=== PATIENT | female | born 1980 | race Two or more races ===

== ENCOUNTER 2021-12-09 15:10 | Inpatient (IN) | payer MEDICAID ==
[~2021-12-09] VITALS: Ht 167.6 cm; Wt 56.7 kg
[2021-12-09] MEDS ORDERED: ONDANSETRON HCL 4MG/2ML INJ IV STA (16:53)
[2021-12-09] MEDS ORDERED: KETOROLAC 30MG/ML VIAL IV STA (16:53)
[2021-12-09] MEDS ORDERED: MAGNESIUM/ALUMINUM HYDROXIDE/SIMETHICONE 30ML UDC PO STA (16:53)
[2021-12-09] MEDS ORDERED: SODIUM CHLORIDE 0.9% 1,000 ML IV ONE (17:00)
[2021-12-09 17:43] LABS: BASOPHILS % 0.2 % (0.0-2.0); EOSINOPHILS % 3.7 % (0.0-5.0); HEMATOCRIT. 41.2 % (36.0-48.0); HEMOGLOBIN. 14.3 g/dL (12.0-16.0); LYMPHOCYTES % 20.7 % (20.0-50.0); MEAN CORPUSCULAR HEMOGLOBIN 38.5 pg (28.0-32.0); MEAN CORPUSCULAR VOLUME 110.7 fL (81.0-99.0); MEAN PLATELET VOLUME 9.4 fl (7.4-10.4); MONOCYTES % 6.8 % (2.0-8.0); NEUTROPHILS % 68.6 % (40.0-76.0); PLATELET 247 x1000/uL (130-400); RED BLOOD CELL COUNT 3.72 mill/uL (4.2-5.4); RED CELL DISTRIBUTION WIDTH 17.9 % (11.6-14.6)
[2021-12-09 17:54] LABS: INR 1.1; PROTHROMBIN TIME 11.9 sec (9.6-11.0)
[2021-12-09 17:57] LABS: CLARITY URINE TURBID (CLEAR); COLOR URINE ORANGE (YELLOW); KETONES URINE NEGATIVE (NEGATIVE); LEUKOCYTE ESTERASE URINE 2+ (NEGATIVE); NITRITE URINE POSITIVE (NEGATIVE); OCCULT BLOOD URINE NEGATIVE (NEGATIVE); PH URINE 5.5 (4.5-8.0); PROTEIN URINE 1+ (NEGATIVE); SPECIFIC GRAVITY URINE 1.036 (1.005-1.030)
[2021-12-09 18:01] LABS: CHLORIDE 97 mEq/L (98-107)
[2021-12-09 18:26] LABS: PLATELET ESTIMATE NORMAL
[2021-12-09] MEDS ORDERED: IOHEXOL-300 100 ML BOTTLE ONE (20:03)
[2021-12-09] MEDS ORDERED: CEFTRIAXONE 1 G PREMIX 50 ML IV ONE (20:15)
[2021-12-09] MEDS ORDERED: POTASSIUM CHLORIDE 20MEQ TABLET SR PO ONE (20:45)
[2021-12-09] MEDS ORDERED: DOCUSATE SODIUM 100MG CAPSULE PO PRN (22:00)
[2021-12-09] MEDS ORDERED: GUAIFENESIN 200MG/10ML SUGAR FREE UDC PO PRN (22:00)
[2021-12-09] MEDS ORDERED: MAGNESIUM/ALUMINUM HYDROXIDE/SIMETHICONE 30ML UDC PO PRN (22:00)
[2021-12-09] MEDS ORDERED: ONDANSETRON HCL 4MG/2ML INJ IV PRN (22:00)
[2021-12-09] MEDS ORDERED: IPRATROPIUM/ALBUTEROL 0.5-3(2.5)MG/3ML NEB HHN PRN (22:00)
[2021-12-09] MEDS ORDERED: CEFTRIAXONE 1 G PREMIX 50 ML IV SCH (22:00)
[2021-12-09] MEDS ORDERED: CLONIDINE 0.1MG TABLET PO PRN (22:00)
[2021-12-09] MEDS: THIAMINE HCL 100MG TABLET PO SCH (22:00)
[2021-12-09] MEDS: MULTIVITAMINS,THER W-MINERALS TABLET PO SCH (22:00)
[2021-12-09] MEDS ORDERED: ACETAMINOPHEN 325MG TABLET PO PRN ×2 (22:00)
[2021-12-10] MEDS: HYDROCODONE/ACETAMINOPHEN 5/325MG TABLET PO PRN ×4 (03:40→21:58)
[2021-12-10 05:26] LABS: BASOPHILS % 0.4 % (0.0-2.0); EOSINOPHILS % 4.5 % (0.0-5.0); HEMATOCRIT. 36.5 % (36.0-48.0); HEMOGLOBIN. 12.7 g/dL (12.0-16.0); LYMPHOCYTES % 27.8 % (20.0-50.0); MEAN CORPUSCULAR HEMOGLOBIN 38.4 pg (28.0-32.0); MEAN CORPUSCULAR VOLUME 110.6 fL (81.0-99.0); MEAN PLATELET VOLUME 9.6 fl (7.4-10.4); MONOCYTES % 7.2 % (2.0-8.0); NEUTROPHILS % 60.1 % (40.0-76.0); PLATELET 205 x1000/uL (130-400); RED BLOOD CELL COUNT 3.31 mill/uL (4.2-5.4); RED CELL DISTRIBUTION WIDTH 17.4 % (11.6-14.6)
[2021-12-10 05:35] LABS: PHOSPHORUS 2.9 mg/dL (2.5-4.9)
[2021-12-10 05:39] LABS: CREATINE KINASE 38 IU/L (26-192)
[2021-12-10 05:49] LABS: HEPATITIS B SURFACE AB < 3.1 mIU/mL
[2021-12-10 05:59] LABS: HEPATITIS B SURFACE ANTIGEN NEGATIVE
[2021-12-10 06:42] LABS: CHLORIDE 102 mEq/L (98-107); LDL CHOLESTEROL 117 mg/dL (5-100); T4 FREE 1.08 ng/dL (0.76-1.46)
[2021-12-10 07:09] LABS: HDL CHOLESTEROL 14 mg/dL (40-59)
[2021-12-10] MEDS: PANTOPRAZOLE 40MG DR TABLET PO SCH (07:48)
[2021-12-10] MEDS ORDERED: FAMOTIDINE 20MG/2ML VIAL IV SCH (09:00)
[2021-12-10] MEDS ORDERED: KCL 20MEQ/100ML PREMIX 100 ML IV NR (09:30)
[2021-12-10 11:16] VITALS: BP 138/100
[2021-12-10] MEDS: MULTIVITAMINS,THER W-MINERALS TABLET PO SCH (11:57)
[2021-12-10] MEDS: THIAMINE HCL 100MG TABLET PO SCH (11:57)
[2021-12-10] MEDS: FOLIC ACID 1MG TABLET PO SCH (11:57)
[2021-12-10] MEDS: ENOXAPARIN 40MG/0.4ML SYR SUBCUT SCH (11:58)
[2021-12-10 12:00] VITALS: BP 134/78
[2021-12-10] MEDS: METOCLOPRAMIDE HCL 10MG/2ML VIAL IV SCH ×2 (15:35→18:13)
[2021-12-10 16:01] VITALS: BP 139/94
[2021-12-10 20:00] VITALS: BP 128/94
[2021-12-10] MEDS ORDERED: CEFTRIAXONE 1,000 MG in DEXTROSE 5% WATER 50 ML IV SCH (21:00)
[2021-12-11] VITALS: BP 133/94
[2021-12-11] MEDS: METOCLOPRAMIDE HCL 10MG/2ML VIAL IV SCH ×2 (00:57→07:35)
[2021-12-11 04:00] VITALS: BP 131/92
[2021-12-11] MEDS: PANTOPRAZOLE 40MG DR TABLET PO SCH (07:35)
[2021-12-11 07:42] LABS: BASOPHILS % 0.7 % (0.0-2.0); EOSINOPHILS % 7.3 % (0.0-5.0); HEMOGLOBIN. 11.4 g/dL (12.0-16.0); LYMPHOCYTES % 29.7 % (20.0-50.0); MEAN CORPUSCULAR HEMOGLOBIN 38.7 pg (28.0-32.0); MEAN CORPUSCULAR VOLUME 111.5 fL (81.0-99.0); MEAN PLATELET VOLUME 9.2 fl (7.4-10.4); MONOCYTES % 7.9 % (2.0-8.0); NEUTROPHILS % 54.4 % (40.0-76.0); PLATELET 187 x1000/uL (130-400); RED BLOOD CELL COUNT 2.96 mill/uL (4.2-5.4); RED CELL DISTRIBUTION WIDTH 17.4 % (11.6-14.6)
[2021-12-11 08:00] VITALS: BP 150/107
[2021-12-11 09:29] LABS: CHLORIDE 107 mEq/L (98-107)
[2021-12-11] MEDS: THIAMINE HCL 100MG TABLET PO SCH (09:44)
[2021-12-11] MEDS: FOLIC ACID 1MG TABLET PO SCH (09:44)
[2021-12-11] MEDS: MULTIVITAMINS,THER W-MINERALS TABLET PO SCH (09:44)
[2021-12-11] MEDS: HYDROCODONE/ACETAMINOPHEN 5/325MG TABLET PO PRN (09:45)
[2021-12-11] MEDS: ENOXAPARIN 40MG/0.4ML SYR SUBCUT SCH (09:46)
[2021-12-11] MEDS ORDERED: MAGNESIUM 2 G PREMIX 50 ML IV NR (10:00)
[2021-12-11 12:00] VITALS: BP 150/107
[2021-12-11] MEDS ORDERED: POTASSIUM CHLORIDE 20MEQ TABLET SR PO NR (12:00)
[2021-12-11 12:36] VITALS: BP 150/107
[2021-12-11] MEDS ORDERED: FOLI-43 PO (12:54)
[2021-12-11] MEDS ORDERED: NITR-87 PO (12:54)
[2021-12-11] MEDS ORDERED: MULT-625 PO (12:54)
[2021-12-11] MEDS ORDERED: OMEP40CA20 PO (12:54)
[2021-12-11] MEDS ORDERED: THIA100T72 PO (12:54)
== END 2021-12-11 15:20 | disposition home or self-care (01) | DRG 463 ==
LOC: ER 15:10 → EDBEDREQ 19:21 → SUPCPDRO 20:21 → 6WST 12-10 01:02 → EDBEDREQTM 12-10 01:20 → EDBEDREQ 12-10 01:20 → EDBEDREQSVC 12-10 07:14 → ENRESERV 12-10 09:18
PROVIDERS: ADMIT Internal Medicine; ATTEND Internal Medicine
DX: N39.0 Urinary tract infection, site not specified (principal); E46 Unspecified protein-calorie malnutrition; R16.0 Hepatomegaly, not elsewhere classified; D53.1 Other megaloblastic anemias, not elsewhere classified; K76.9 Liver disease, unspecified; E87.6 Hypokalemia; I10 Essential (primary) hypertension; N28.1 Cyst of kidney, acquired; N83.202 Unspecified ovarian cyst, left side; E83.42 Hypomagnesemia; E53.8 Deficiency of other specified B group vitamins; R74.01 Elevation of levels of liver transaminase levels; E80.6 Other disorders of bilirubin metabolism; R13.10 Dysphagia, unspecified; F10.20 Alcohol dependence, uncomplicated; Z68.20 Body mass index [BMI] 20.0-20.9, adult; Z98.82 Breast implant status; N83.201 Unspecified ovarian cyst, right side; Z90.49 Acquired absence of other specified parts of digestive tract; Z87.891 Personal history of nicotine dependence
CPT/HCPCS: 36415; 71045; 74177; 76705; 80048; 80053; 80061; 80076; 81003; 82140; 82248; 82550; 82607; 82746; 82962; 83036; 83735; 84100; 84439; 84443; 84481; 84484; 85025; 86705; 86706; 86709; 86803; 87340; 99285; J0696; J1650; J1885; J2405; J2765; J3475; J3480; J7030; J7060; Q9967

== ENCOUNTER 2022-09-08 20:05 | Emergency (ER) | payer MEDICAID, OTHER ==
[~2022-09-08] VITALS: Ht 167.6 cm; Wt 80.2 kg
[~2022-09-08 20:05] MED LIST: AZIT250T12 MT; FOLI-43 PO; MULT-625 PO; NAPR-1074 MT; NITR-87 PO; OMEP40CA20 PO; THIA100T72 PO
[2022-09-08 20:10] VITALS: O2SAT 98
[2022-09-08] MEDS ORDERED: SODIUM CHLORIDE 0.9% 1,000 ML IV ONE (20:45)
[2022-09-08 21:01] LABS: BASOPHILS % 1.4 % (0.0-2.0); EOSINOPHILS % 2.2 % (0.0-5.0); HEMATOCRIT. 39.2 % (36.0-48.0); HEMOGLOBIN. 13.4 g/dL (12.0-16.0); MEAN CORPUSCULAR HEMOGLOBIN 30.7 pg (28.0-32.0); MEAN PLATELET VOLUME 7.3 fl (7.4-10.4); NEUTROPHILS % 58.4 % (40.0-76.0); PLATELET 158 x1000/uL (130-400); RED BLOOD CELL COUNT 4.35 mill/uL (4.2-5.4); RED CELL DISTRIBUTION WIDTH 18.5 % (11.6-14.6)
[2022-09-08 21:08] LABS: CHLORIDE 107 mEq/L (98-107)
[2022-09-08 21:17] LABS: HCG SCREEN NEGATIVE
[2022-09-08 21:41] LABS: CLARITY URINE CLOUDY (CLEAR); COLOR URINE YELLOW (YELLOW); KETONES URINE 1+ (NEGATIVE); LEUKOCYTE ESTERASE URINE 2+ (NEGATIVE); NITRITE URINE NEGATIVE (NEGATIVE); OCCULT BLOOD URINE 3+ (NEGATIVE); PH URINE 5.5 (4.5-8.0); PROTEIN URINE 1+ (NEGATIVE); SPECIFIC GRAVITY URINE 1.008 (1.005-1.030); UROBILINOGEN URINE 0.2 E.U./dL (0.2-1.0)
[2022-09-08] MEDS ORDERED: NITROFURANTOIN 100MG M/M CAPSULE PO STA (21:44)
[2022-09-08] MEDS ORDERED: POTASSIUM CHLORIDE 20MEQ TABLET SR PO ONE (21:45)
[2022-09-08 21:50] LABS: ETHANOL BLOOD 420 mg/dL (-10)
[2022-09-08 21:52] LABS: *AMPHETAMINES SCREEN URINE NEGATIVE (NEGATIVE); *BARBITURATES SCREEN URINE NEGATIVE (NEGATIVE); *BENZODIAZEPINES SCREEN URINE NEGATIVE (NEGATIVE); *COCAINE SCREEN URINE NEGATIVE (NEGATIVE); CANNABINOID URINE SCREEN NEGATIVE (NEGATIVE); METHADONE URINE SCREEN NEGATIVE (NEGATIVE); OPIATES URINE SCREEN NEGATIVE (NEGATIVE); PHENCYCLIDINE URINE SCREEN NEGATIVE (NEGATIVE)
[2022-09-09] MEDS ORDERED: NITR-87 MT (00:52)
[2022-09-09 01:00] VITALS: BP 127/85; PULSE 100; RESP 16; TEMP 98.6
== END 2022-09-09 01:04 | disposition home or self-care (01) ==
LOC: ER 20:05
DX: F10.10 Alcohol abuse, uncomplicated (principal); N39.0 Urinary tract infection, site not specified; F12.10 Cannabis abuse, uncomplicated; I49.9 Cardiac arrhythmia, unspecified; Z90.49 Acquired absence of other specified parts of digestive tract; Y90.8 Blood alcohol level of 240 mg/100 ml or more
CPT/HCPCS: 80053; 80305; 81003; 80307; 80329; 80320; 84703; 85025; 87086; 87186; 36415; 93005; 96360; 99284; J7030; G0480

== ENCOUNTER 2022-11-24 21:51 | Emergency (ER) | payer MEDICAID, OTHER ==
[~2022-11-24] VITALS: Ht 167.6 cm; Wt 73.0 kg
[~2022-11-24 21:51] MED LIST changes: +NITR-87 MT
[2022-11-24 22:00] VITALS: O2SAT 98
[2022-11-24] MEDS ORDERED: SODIUM CHLORIDE 0.9% 1,000 ML IV ONE (22:15)
[2022-11-24 22:45] LABS: BASOPHILS % 0.6 % (0.0-2.0); EOSINOPHILS % 4.6 % (0.0-5.0); HEMOGLOBIN. 13.4 g/dL (12.0-16.0); LYMPHOCYTES % 31.9 % (20.0-50.0); MEAN CORPUSCULAR HEMOGLOBIN 27.9 pg (28.0-32.0); MEAN CORPUSCULAR HGB CONC 33.5 g/dL (31.0-37.0); MEAN CORPUSCULAR VOLUME 83.1 fL (81.0-99.0); MEAN PLATELET VOLUME 8.3 fl (7.4-10.4); MONOCYTES % 5.5 % (2.0-8.0); NEUTROPHILS % 57.4 % (40.0-76.0); PLATELET 318 x1000/uL (130-400); RED BLOOD CELL COUNT 4.82 mill/uL (4.2-5.4); RED CELL DISTRIBUTION WIDTH 17.3 % (11.6-14.6); WHITE BLOOD COUNT 9.6 x1000/uL (4.5-11.0)
[2022-11-24 22:58] LABS: CHLORIDE 113 mEq/L (98-107); INDEX HEMOLYSI 2 (1-3); INDEX ICTERIC 1 (1-4); INDEX LIPEMIC 1 (1-3); POTASSIUM 3.8 mEq/L (3.5-5.1); SODIUM 142 mEq/L (136-145)
[2022-11-24 22:59] LABS: HCG SCREEN NEGATIVE
[2022-11-24 23:01] LABS: CALCIUM 8.9 mg/dL (8.5-10.1); CARBON DIOXIDE 26 mEq/L (21-32); ETHANOL BLOOD 222 mg/dL (<10); GLUCOSE 84 mg/dL (70-105); UREA NITROGEN BLOOD 10 mg/dL (7-21)
[2022-11-24 23:05] LABS: ACETAMINOPHEN <2 ug/mL ug/mL (10-30); ALANINE AMINOTRANSFERASE 28 IU/L (13-61); ASPARTATE AMINOTRANSFERASE 28 IU/L (15-37); BILIRUBIN TOTAL 0.2 mg/dL (0.1-1.0); CREATININE 0.7 mg/dL (0.6-1.3); PROTEIN TOTAL 8.3 g/dL (6.0-8.3)
[2022-11-24 23:33] LABS: CLARITY URINE CLEAR (CLEAR); COLOR URINE YELLOW (YELLOW); GLUCOSE URINE NEGATIVE (NEGATIVE); KETONES URINE NEGATIVE (NEGATIVE); LEUKOCYTE ESTERASE URINE NEGATIVE (NEGATIVE); NITRITE URINE NEGATIVE (NEGATIVE); OCCULT BLOOD URINE NEGATIVE (NEGATIVE); PH URINE 5.5 (4.5-8.0); PROTEIN URINE NEGATIVE (NEGATIVE); SPECIFIC GRAVITY URINE 1.008 (1.005-1.030); UROBILINOGEN URINE 0.2 E.U./dL (0.2-1.0)
[2022-11-24 23:46] LABS: *AMPHETAMINES SCREEN URINE NEGATIVE (NEGATIVE); *BARBITURATES SCREEN URINE NEGATIVE (NEGATIVE); *BENZODIAZEPINES SCREEN URINE NEGATIVE (NEGATIVE); *COCAINE SCREEN URINE NEGATIVE (NEGATIVE); CANNABINOID URINE SCREEN NEGATIVE (NEGATIVE); ECSTASY MDMA SCREEN URINE NEGATIVE (NEGATIVE); METHADONE URINE SCREEN NEGATIVE (NEGATIVE); OPIATES URINE SCREEN NEGATIVE (NEGATIVE); PHENCYCLIDINE URINE SCREEN NEGATIVE (NEGATIVE)
[2022-11-25 00:41] VITALS: BP 107/73; PULSE 89; RESP 18; TEMP 98.4
== END 2022-11-25 00:46 | disposition home or self-care (01) ==
LOC: ER 21:51
DX: F10.129 Alcohol abuse with intoxication, unspecified (principal); F12.90 Cannabis use, unspecified, uncomplicated; Z90.49 Acquired absence of other specified parts of digestive tract; Y90.9 Presence of alcohol in blood, level not specified
CPT/HCPCS: 80053; 80305; 81003; 80307; 80329; 80320; 84703; 85025; 36415; 96360; 99283; J7030; G0480